=== PATIENT | female | born 1995 | race Caucasian/White ===

== ENCOUNTER 2016-08-11 20:01 | Emergency (ER) | payer SELFPAY ==
[~2016-08-11] VITALS: Ht 167.6 cm; Wt 104.3 kg
[~2016-08-11 20:01] MED LIST: PRED50TA PO; TRAM-29 PO; VALA500T5 PO
[2016-08-11 20:36] VITALS: BP 176/77
--- NOTE | 2016-08-11 20:51 | PHYS DOC ---
Past Medical History Past Medical History: Asthma, Diabetes-Type I Past Surgical History: Cholecystectomy, Tonsillectomy, Other Alcohol Use: None Drug Use: None Adult General Chief Complaint Chief Complaint: COUGH HPI HPI Patient is a 20 year old female presents emergency department stating that she' s had a cough congestion sore throat and sinus pressure since Tuesday. Patient states that she also has been exposed to the influenza virus. Patient states he' s been taken Tylenol and ibuprofen for pain and discomfort. Chest is states that her glucose is a bit elevated into the 300s. She has been adjusting her insulin accordingly. Patient denies any nausea vomiting. Review of Systems Review of Systems Constitutional: fever Eyes: Denies change in visual acuity, redness, or eye pain [] HENT: nasal congestion with a sore throat [] Respiratory: cough and shortness of breath [] Cardiovascular: No additional information not addressed in HPI [] GI: Denies abdominal pain, nausea, vomiting, bloody stools or diarrhea [] : Denies dysuria or hematuria [] Musculoskeletal: Denies back pain or joint pain [] Integument: Denies rash or skin lesions [] Neurologic: Denies headache, focal weakness or sensory changes [] Current Medications Current Medications Current Medications Medications (Trade) Dose Ordered Sig/Claudia Start Time Stop Time Status Last Admin Dose Admin Albuterol/ Ipratropium (Duoneb) 3 ml 1X ONCE 08/11/16 21:00 08/11/16 21:01 DC 08/11/16 21:04 3 ML Allergies Allergies Allergies Coded Allergies Type Severity Reaction Last Updated Verified amoxicillin Allergy Intermediate 07/22/16 Yes clavulanic acid Allergy Intermediate 07/22/16 Yes clindamycin Allergy Intermediate 07/22/16 Yes Physical Exam Physical Exam Constitutional: Well developed, well nourished, no acute distress, non-toxic appearance. [] HENT: Normocephalic, atraumatic, bilateral external ears normal, oropharynx moist, no oral exudates, nose normal. Right tympanic membrane normal, left tympanic membrane appears to be red. Patient with frontal and maxillary sinus tenderness noted. Patient with bilateral naris erythematous and swelling. Eyes: PERRLA, EOMI, conjunctiva normal, no discharge. [] Neck: Normal range of motion, no tenderness, supple, no stridor. [] Cardiovascular:Heart rate regular rhythm, no murmur [] Lungs & Thorax: Bilateral breath sounds with wheezes noted posteriorly. Skin: Warm, dry, no erythema, no rash. [] Back: No tenderness Extremities: No tenderness, no cyanosis, no clubbing, ROM intact, no edema. [] Neurologic: Alert and oriented X 3, normal motor function, normal sensory function, no focal deficits noted. [] Psychologic: Affect normal, judgement normal, mood normal. [] Current Patient Data Vital Signs Vital Signs Date Time Temp Pulse Resp B/P Pulse Ox O2 Delivery O2 Flow Rate FiO2 08/11/16 21:02 95 Room Air 08/11/16 20:36 99.0 132 18 99.0 Lab Values Laboratory Tests Test 08/11/16 20:30 Influenza Type A Antigen Positive (NEGATIVE) Influenza Type B Antigen Negative (NEGATIVE) EKG EKG [] Radiology/Procedures Radiology/Procedures [] Course & Med Decision Making Course & Med Decision Making Pertinent Labs and Imaging studies reviewed. (See chart for details) She was provided with a DuoNeb here in the emergency department. Posterior breath sounds are clear at this time. Patient's influenza A was positive. Rapid strep was negative. Patient will be provided with Zithromax for sinus infection as well as influenza in which she is out of the timeframe to have Tamiflu. Recommended Tylenol and ibuprofen for fever chills or otherwise body aches and discomfort. Recommended plenty of fluids. She'll also be provided with prednisone as she was wheezing throughout. She does have a history of asthma and has albuterol inhaler at home. Recommended her using that as prescribed. Patient will be discharged home in stable condition since symptoms to return back to emergency department as been provided. Patient agrees with discharge instructions treatment regimens and follow-up recommendations [] Dragon Disclaimer Dragon Disclaimer This electronic medical record was generated, in whole or in part, using a voice recognition dictation system. Departure Departure Impression: Primary Impression: Influenza A Additional Impression: Sinusitis Disposition: HOME, SELF-CARE Condition: STABLE Referrals: NO PCP (PCP) Patient Instructions: Influenza, Adult, Sinusitis, [id number] Additional Instructions: Medication as prescribed. Tylenol or ibuprofen for fever chills or generalized body aches and discomfort. Drink plenty of fluids. Use your albuterol inhaler as prescribed at home. Follow-up through primary care physician in one week. Return back to emergency percent symptoms of become worse. Scripts Prednisone 20 Mg Tablet2 Tab PO DAILY #10 TAB Prov:AGNES BRAGG NP 08/11/16 Azithromycin (Zithromax)250 Mg [id number] Mg PO DAILY ANTI-BIOTIC #6 TAB Ref 0 take 2 tablets today and then 1 tablet daily until gone Prov:AGNES BRAGG NP 08/11/16 Problem Qualifiers AGNES BRAGG NP Aug 11, 2016 20:51
[2016-08-11] MEDS ORDERED: IPRATRPIUM/ALBUTEROL 0.5/2.5MG 3 ML NEBU. NEB ONE (21:00)
[2016-08-11 21:06] LABS: OBC FLU VALID
[2016-08-11] MEDS ORDERED: PRED20TA PO (21:16)
[2016-08-11] MEDS ORDERED: AZIT250T PO (21:16)
[2016-08-12 08:51] LABS: NEGATIVE OBC STREP NEG; POSITIVE OBC STREP POS
== END 2016-08-11 21:23 | disposition home or self-care (01) ==
LOC: ER 20:01
DX: J09.X2 Influenza due to identified novel influenza A virus with other respiratory manifestations (principal); J32.9 Chronic sinusitis, unspecified; J45.909 Unspecified asthma, uncomplicated; E10.9 Type 1 diabetes mellitus without complications; Z88.1 Allergy status to other antibiotic agents; Z88.8 Allergy status to other drugs, medicaments and biological substances
CPT/HCPCS: 87070; 87804; 87880; 94250; 94640; 99284; J7620

== ENCOUNTER 2016-09-13 18:04 | Emergency (ER) | payer SELFPAY ==
[~2016-09-13 18:04] MED LIST changes: +AZIT250T PO; +PRED20TA PO
[2016-09-13 20:23] LABS: BILIRUBIN,URINE NEGATIVE (NEG); GLUCOSE,URINE >=1000 mg/dL (NEG); NITRITE,URINE NEGATIVE (NEG); PH,URINE 5.5; PROTEIN,URINE 30 mg/dL (NEG-TRACE); UROBILINOGEN,URINE 0.2 mg/dL (0.2 mg/dL)
[2016-09-13] MEDS ORDERED: IBUPROFEN 400 MG TABLET. PO ONE (20:30)
[2016-09-13 20:37] LABS: BACTERIA,URINE MANY /HPF (0-FEW); RBC,URINE TNTC /HPF (0-2); SQUAMOUS EPITHELIAL CELL,UR FEW /LPF
[2016-09-13 20:58] LABS: NEG OBC UR NEG; POS OBC UR POS
[2016-09-13 21:00] VITALS: BP 145/71
[2016-09-13] MEDS ORDERED: CIPR250T PO (21:02)
--- NOTE | 2016-09-13 21:02 | PHYS DOC ---
Past Medical History Past Medical History: Asthma, Diabetes-Type II, Diverticulitis Additional Past Medical Histor: fatty liver, stomach ulcers Past Surgical History: Cholecystectomy, Tonsillectomy Alcohol Use: Rarely Drug Use: None Adult General Chief Complaint Chief Complaint: ABDOMINAL PAIN HPI HPI Patient is a 20 year old female who presents with dysuria and bilateral low back pain for the past 2 weeks. Her pain comes after urination. Right back hurts worse than left back. Pain is burning and aching. She denies abdominal pain, fever or chills, nausea or vomiting, constipation, diarrhea, vaginal bleeding or discharge. Review of Systems Review of Systems Constitutional: Denies fever or chills [] Eyes: Denies change in visual acuity, redness, or eye pain [] HENT: Denies nasal congestion or sore throat [] Respiratory: Denies cough or shortness of breath [] Cardiovascular: No additional information not addressed in HPI [] GI: Denies abdominal pain, nausea, vomiting, bloody stools or diarrhea [] : Denies hematuria [] Musculoskeletal: Denies joint pain [] Integument: Denies rash or skin lesions [] Neurologic: Denies headache, focal weakness or sensory changes [] Endocrine: Denies polyuria or polydipsia [] Current Medications Current Medications Current Medications Medications (Trade) Dose Ordered Sig/Claudia Start Time Stop Time Status Last Admin Dose Admin Ibuprofen (Motrin) 400 mg 1X ONCE 09/13/16 20:30 09/13/16 20:39 DC 09/13/16 20:48 400 MG Allergies Allergies Allergies Coded Allergies Type Severity Reaction Last Updated Verified amoxicillin Allergy Intermediate 07/22/16 Yes clavulanic acid Allergy Intermediate 07/22/16 Yes clindamycin Allergy Intermediate 07/22/16 Yes Physical Exam Physical Exam Constitutional: Well developed, well nourished, no acute distress, non-toxic appearance. [] HENT: Normocephalic, atraumatic, bilateral external ears normal, oropharynx moist, nose normal. [] Eyes: PERRLA, EOMI. [] Neck: Normal range of motion, supple. [] Cardiovascular:Heart rate regular rhythm [] Lungs & Thorax: Bilateral breath sounds clear to auscultation [] Abdomen: Bowel sounds normal, soft, no tenderness. [] Skin: Warm, dry, no erythema, no rash. [] Back: No tenderness, no CVA tenderness. [] Extremities: ROM intact, no edema. [] Neurologic: Alert and oriented X 3, normal motor function, normal sensory function, no focal deficits noted. [] Psychologic: Affect normal, judgement normal, mood normal. [] Current Patient Data Vital Signs Vital Signs Date Time Temp Pulse Resp B/P Pulse Ox O2 Delivery O2 Flow Rate FiO2 09/13/16 19:01 97.7 104 18 132/81 100 Room Air 97.7 Lab Values Laboratory Tests Test 09/13/16 19:45 Urine Collection Type Unknown Urine Color Yellow Urine Clarity Cloudy Urine pH 5.5 Urine Specific [place] >=1.030 Urine Protein 30mg/dL (NEG-TRACE) Urine Glucose (UA) >=1000mg/dL (NEG) Urine Ketones (Stick) Negativemg/dL (NEG) Urine Blood Large (NEG) Urine Nitrite Negative (NEG) Urine Bilirubin Negative (NEG) Urine Urobilinogen Dipstick 0.2mg/dL (0.2 mg/dL) Urine Leukocyte Esterase Moderate (NEG) Urine RBC Tntc/HPF (0-2) Urine WBC 5-10/HPF (0-4) Urine Squamous Epithelial Cells Few/LPF Urine Bacteria Many/HPF (0-FEW) Urine Test Negative (NEG) Course & Med Decision Making Course & Med Decision Making Pertinent Labs and Imaging studies reviewed. (See chart for details) Will treat for urinary tract infection. Encouraged close primary care doctor follow-up. Return precautions given. She understands and agrees with plan. Dragon Disclaimer Dragon Disclaimer This electronic medical record was generated, in whole or in part, using a voice recognition dictation system. Departure Departure Impression: Primary Impression: Acute cystitis with hematuria Disposition: HOME, SELF-CARE Condition: STABLE Referrals: UNKNOWN PCP NAME (PCP) Patient Instructions: Urinary Tract Infection, [id number] Additional Instructions: Take Cipro for urinary tract infection. Take Tylenol or ibuprofen as needed for pain. Follow-up with your primary care doctor within one week. Return for any concerns. Scripts Ciprofloxacin Hcl 250 Mg Tablet1 Tab PO BID #6 TAB Prov:Claudio AKBAR MD 09/13/16 Claudio AKBAR MD Sep 13, 2016 21:02
== END 2016-09-13 21:20 | disposition home or self-care (01) ==
LOC: ER 18:04
DX: N30.01 Acute cystitis with hematuria (principal); J45.909 Unspecified asthma, uncomplicated; E11.9 Type 2 diabetes mellitus without complications; Z90.49 Acquired absence of other specified parts of digestive tract; Z88.0 Allergy status to penicillin; Z88.1 Allergy status to other antibiotic agents
CPT/HCPCS: 81001; 81025; 87086; 99284

== ENCOUNTER 2017-01-04 21:11 | Emergency (ER) | payer SELFPAY ==
[~2017-01-04] VITALS: Ht 165.1 cm; Wt 99.8 kg
[~2017-01-04 21:11] MED LIST changes: +CIPR250T PO; -TRAM-29 PO; +TRAM-48 PO
[2017-01-04] MEDS ORDERED: IV NORMAL SALINE 1000ML BAG 1,000 ML IV ONE (21:45)
[2017-01-04 21:47] LABS: BILIRUBIN,URINE NEGATIVE (NEG); GLUCOSE,URINE 100 mg/dL (NEG); NITRITE,URINE NEGATIVE (NEG); PH,URINE 5.5; PROTEIN,URINE NEGATIVE (NEG-TRACE); UROBILINOGEN,URINE 0.2 mg/dL (0.2 mg/dL)
[2017-01-04 22:01] LABS: BACTERIA,URINE 0 /HPF (0-FEW); SQUAMOUS EPITHELIAL CELL,UR FEW /LPF
[2017-01-04 22:08] LABS: BASO # 0.1 x10^3/uL (0.0-0.2); BASO % 1 % (0-3); EOS % 1 % (0-3); HEMATOCRIT 34.3 % (36.0-47.0); HEMOGLOBIN 10.5 g/dL (12.0-15.5); LYMPH # 3.4 x10^3/uL (1.0-4.8); LYMPH % 25 % (24-48); MEAN CORPUSCULAR HEMOGLOBIN 22 pg (25-35); MEAN CORPUSCULAR HGB CONC 31 g/dL (31-37); MEAN CORPUSCULAR VOLUME 71 fL (79-100); MONO % 4 % (0-9); NEUT % 70 % (31-73); PLATELET COUNT 379 x10^3/uL (140-400); RED BLOOD COUNT 4.79 x10^6/uL (3.50-5.40); RED CELL DISTRIBUTION WIDTH 15.7 % (11.5-14.5)
[2017-01-04 22:19] LABS: CREATININE 0.8 mg/dL (0.6-1.0); GFR 88.9; POTASSIUM 3.6 mmol/L (3.5-5.1)
--- NOTE | 2017-01-04 22:21 | PHYS DOC ---
Past Medical History Past Medical History: Asthma, Diabetes-Type II, Diverticulitis Additional Past Medical Histor: fatty liver, stomach ulcers Past Surgical History: Cholecystectomy, Tonsillectomy Alcohol Use: Rarely Drug Use: None Adult General Chief Complaint Chief Complaint: BLOOD IN URINE HPI HPI Patient is a 21 year old F who presents with right flank pain and increased urinary frequency for the past 2 days. Should states she's had subjective fevers at home. Patient states she has positive nausea with no vomiting/or diarrhea. Patient states she is a history of UTIs and has recently moved into the area and has no PCP. Patient states that over the past couple months she's been having right flank pain and has been diagnosed with multiple UTIs and was admitted to [facility] in October 2016 for these reasons. Patient has not followed up as an outpatient. Patient denies any chest pain or shortness of breath. Patient has no other complaints. Pertinent exam findings: Abdomen was soft positive tenderness palpation over the right flank with positive CVA tenderness ED course: Patient was seen and examined a CBC, CMP, lipase, UA were ordered along with 1 L normal saline bolus 2233: Reviewing the lab work patient has elevated white count however her urine shows no signs of infection will pursue a CT scan abdomen and pelvis 0032: Discuss CT results the patient and recommended she follow up with her PCP for further evaluation of the large lymph nodes. Give the patient the option of being treated clinically for UTI even know her urine did not show signs or symptoms of a bladder infection and the patient opted not to be treated and will follow-up with her PCP. Pertinent results: UA was negative WBC 14 CT scan abdomen and pelvis IMPRESSION: Prominent lymph nodes in the mesentery in the right lower quadrant and in the inguinal regions bilaterally. No other focal abnormalities seen in the abdomen or pelvis. MDM: After reviewing the chart, CC/HPI/PMH, physical exam, [lab results], [ radiological results], I do not believe the patient has intra-abdominal emergency warranting further workup and/or admission at this time. I made patient aware of the enlarged lymph nodes on the CT scan and recommend she follow up with PCP for further evaluation of this lymph nodes to rule out cancer. Patient is comfortable going home. Discussed the possibility of treating for a clinical UTI however the patient stated that if her urine did not show signs or symptoms of UTI she did not want to be placed on ABX at this time. Recommended short-term follow-up with PCP in one to 2 days. Additional verbal discharge instructions were provided to the patient and that if symptoms get worse or any new symptoms arise that are worrisome to the patient she is to return to the emergency room immediately Review of Systems Review of Systems GEN: Denies fevers, chills, sweats HEENT: Denies blurred vision, sore throat CV: Denies chest pain RESP: Denies shortness of air, cough GI: Right flank pain with nausea NEURO: Denies confusion, dizziness MSK: Denies weakness, joint pain/swelling Current Medications Current Medications Current Medications Medications (Trade) Dose Ordered Sig/Claudia Start Time Stop Time Status Last Admin Dose Admin Info (Do NOT chart on this entry -- for MONITORING) 1 each PRN DAILY PRN 01/04/17 23:30 01/06/17 23:29 Iohexol (Omnipaque 300 Mg/ml) 75 ml 1X ONCE 01/04/17 23:30 01/04/17 23:31 DC 01/04/17 23:29 75 ML Sodium Chloride 1,000 ml @ 1,000 mls/hr 1X ONCE 01/04/17 21:45 01/04/17 22:44 DC 01/04/17 21:58 1,000 MLS/HR Allergies Allergies Allergies Coded Allergies Type Severity Reaction Last Updated Verified amoxicillin Allergy Intermediate 07/22/16 Yes clavulanic acid Allergy Intermediate 07/22/16 Yes clindamycin Allergy Intermediate 07/22/16 Yes Physical Exam Physical Exam GEN.: No apparent distress. Alert and oriented. HEENT: Head is normocephalic, atraumatic NECK: Supple. LUNGS: CTAB. HEART: RRR, S1, S2 present. Peripheral pulses intact ABDOMEN: Soft, positive tenderness palpation of the right flank and positive right CVA tenderness. Positive bowel sounds. EXTREMITIES: Without any cyanosis. NEUROLOGIC: Normal speech, normal tone PSYCHIATRIC: Normal affect, normal mood. SKIN: No ulcerations Current Patient Data Vital Signs Vital Signs Date Time Temp Pulse Resp B/P (MAP) Pulse Ox O2 Delivery O2 Flow Rate FiO2 01/04/17 21:36 98.4 102 20 141/76 (97) 99 Room Air 98.4 Lab Values Laboratory Tests Test 01/04/17 20:41 01/04/17 21:40 01/04/17 21:53 POC Urine HCG, Qualitative Hcg negative (Negative) Urine Collection Type Unknown Urine Color Yellow Urine Clarity Clear Urine pH 5.5 Urine Specific [place] 1.025 Urine Protein Negative mg/dL (NEG-TRACE) Urine Glucose (UA) 100 mg/dL (NEG) Urine Ketones (Stick) Negative mg/dL (NEG) Urine Blood Moderate (NEG) Urine Nitrite Negative (NEG) Urine Bilirubin Negative (NEG) Urine Urobilinogen Dipstick 0.2 mg/dL (0.2 mg/dL) Urine Leukocyte Esterase Negative (NEG) Urine RBC 11-20 /HPF (0-2) Urine WBC 1-4 /HPF (0-4) Urine Squamous Epithelial Cells Few /LPF Urine Bacteria 0 /HPF (0-FEW) Urine Mucus Mod /LPF White Blood Count 14.0 x10^3/uL (4.0-11.0) H Red Blood Count 4.79 x10^6/uL (3.50-5.40) Hemoglobin 10.5 g/dL (12.0-15.5) L Hematocrit 34.3 % (36.0-47.0) L Mean Corpuscular Volume 71 fL (79-100) L Mean Corpuscular Hemoglobin 22 pg (25-35) L Mean Corpuscular Hemoglobin Concent 31 g/dL (31-37) Red Cell Distribution Width 15.7 % (11.5-14.5) H Platelet Count 379 x10^3/uL (140-400) Neutrophils (%) (Auto) 70 % (31-73) Lymphocytes (%) (Auto) 25 % (24-48) Monocytes (%) (Auto) 4 % (0-9) Eosinophils (%) (Auto) 1 % (0-3) Basophils (%) (Auto) 1 % (0-3) Neutrophils # (Auto) 9.8 x10^3uL (1.8-7.7) H Lymphocytes # (Auto) 3.4 x10^3/uL (1.0-4.8) Monocytes # (Auto) 0.6 x10^3/uL (0.0-1.1) Eosinophils # (Auto) 0.1 x10^3/uL (0.0-0.7) Basophils # (Auto) 0.1 x10^3/uL (0.0-0.2) Platelet Estimate Adequate (ADEQUATE) Hypochromasia Mod Poikilocytosis Slight Anisocytosis Slight Microcytosis Mod Ovalocytes Occ Sodium Level 138 mmol/L (136-145) Potassium Level 3.6 mmol/L (3.5-5.1) Chloride Level 104 mmol/L (98-107) Carbon Dioxide Level 29 mmol/L (21-32) Anion Gap 5 (6-14) L Blood Urea Nitrogen 9 mg/dL (7-20) Creatinine 0.8 mg/dL (0.6-1.0) Estimated GFR (Cockcroft-Gault) 88.9 BUN/Creatinine Ratio 11 (6-20) Glucose Level 177 mg/dL (70-99) H Calcium Level 9.0 mg/dL (8.5-10.1) Total Bilirubin 0.2 mg/dL (0.2-1.0) Aspartate Amino Transferase (AST) 10 U/L (15-37) L Alanine Aminotransferase (ALT) 20 U/L (14-59) Alkaline Phosphatase 45 U/L (46-116) L Total Protein 8.1 g/dL (6.4-8.2) Albumin 3.5 g/dL (3.4-5.0) Albumin/Globulin Ratio 0.8 (1.0-1.7) L Lipase 142 U/L (73-393) Laboratory Tests 01/04/17 21:53 Laboratory Tests 01/04/17 21:53 EKG EKG [] Radiology/Procedures Radiology/Procedures CT scan abdomen and pelvis with contrast: IMPRESSION: Prominent lymph nodes in the mesentery in the right lower quadrant and in the inguinal regions bilaterally. No other focal abnormalities seen in the abdomen or pelvis.[] Course & Med Decision Making Course & Med Decision Making Pertinent Labs and Imaging studies reviewed. (See chart for details) [] Dragon Disclaimer Dragon Disclaimer This electronic medical record was generated, in whole or in part, using a voice recognition dictation system. Departure Departure Impression: Primary Impression: Right flank pain Disposition: HOME, SELF-CARE Condition: IMPROVED Referrals: NO PCP (PCP) Additional Instructions: Please follow up with her family doctor to have your enlarged lymph nodes in her abdomen further evaluated within the next week. JAYE MILLARD DO Jan 04, 2017 22:21
[2017-01-04 22:25] LABS: ALBUMIN 3.5 g/dL (3.4-5.0); ALBUMIN/GLOBULIN RATIO 0.8 (1.0-1.7); TOTAL BILIRUBIN 0.2 mg/dL (0.2-1.0); TOTAL PROTEIN 8.1 g/dL (6.4-8.2)
[2017-01-04 22:39] LABS: HYPOCHROMIA MOD; PLT ESTIMATE ADEQUATE (ADEQUATE); POIKILOCYTOSIS SLIGHT
[2017-01-04 22:40] LABS: ANISOCYTOSIS SLIGHT; MICROCYTOSIS MOD; OVALOCYTES OCC
[2017-01-04] MEDS ORDERED: CONTRAST GIVEN MC PRN (23:30)
[2017-01-04] MEDS ORDERED: IOHEXOL 300 MG/ML 75 ML VIAL IV ONE (23:30)
--- NOTE | 2017-01-05 00:10 | RAD ---
CT abdomen and pelvis with contrast: Reason for examination: Right flank pain and hematuria. Evaluate for pyelonephritis per doctor. Helical images were obtained through the abdomen and pelvis with intravenous administration of 75 cc Omnipaque 300. Reconstruction was performed in sagittal and coronal planes. Exposure: One or more of the following individualized dose reduction techniques were utilized for this examination: 1. Automated exposure control 2. Adjustment of the mA and/or kV according to patient size 3. Use of iterative reconstruction technique. The lung bases are clear. The heart size is normal with no pericardial effusion evident. No abnormality seen in the liver, spleen, adrenal glands or pancreas. The gallbladder surgically absent. The kidneys are homogeneous without evidence of mass or pyelonephritis. No renal calculi or hydronephrosis is seen. There is no evidence of obstructive uropathy. The intestinal tract shows no abnormally dilated loops of bowel or thickened bowel [place]. There is no evidence of bowel obstruction. No abnormality is seen at the bladder uterus or ovaries. No free fluid is seen. There are prominent inguinal lymph nodes and in the mesentery in the right lower quadrant. No acute bony abnormalities are seen. IMPRESSION: Prominent lymph nodes in the mesentery in the right lower quadrant and in the inguinal regions bilaterally. No other focal abnormalities seen in the abdomen or pelvis. Electronically signed by: Jeanne Gregory MD (01/05/2017 12:06 AM)
[2017-01-05 00:32] VITALS: BP 124/79
== END 2017-01-05 00:43 | disposition home or self-care (01) ==
LOC: ER 21:11
DX: R10.9 Unspecified abdominal pain (principal); R35.0 Frequency of micturition; R50.9 Fever, unspecified; E11.9 Type 2 diabetes mellitus without complications; J45.909 Unspecified asthma, uncomplicated; Z87.19 Personal history of other diseases of the digestive system; Z90.49 Acquired absence of other specified parts of digestive tract; Z88.1 Allergy status to other antibiotic agents
CPT/HCPCS: 36415; 74177; 80053; 81001; 81025; 83690; 85007; 85027; 96360; 99285; J7030; Q9967

== ENCOUNTER 2017-04-02 00:29 | Emergency (ER) | payer SELFPAY ==
[~2017-04-02] VITALS: Ht 167.6 cm; Wt 106.6 kg
--- NOTE | 2017-04-02 00:52 | PHYS DOC ---
Past Medical History Past Medical History: Asthma, Diabetes-Type II, Diverticulitis Additional Past Medical Histor: fatty liver, stomach ulcers Past Surgical History: Cholecystectomy, Tonsillectomy Alcohol Use: Rarely Drug Use: None Adult General Chief Complaint Chief Complaint: HYPERGLYCEMIA HPI HPI Patient is a 21 year old female who presents with hyperglycemia. She states Tuesday she started having a runny nose and noticing her sugars read as "high". She states that she has green nasal discharge and sometimes coughs up green stuff. She states she has a history of asthma and feels like she's been wheezing today. She states that she felt like she had a fever today and has a lot of pressure around her frontal sinuses. She states intermittently over the last several days she's felt like she is going pass out and her vision gets a little blurry occasionally. Currently she denies feeling the symptoms. She states she's been seeing a lot and drinking a lot to try to stay hydrated. She states she takes 70/30 insulin once daily in the morning and is on metformin thousand milligrams twice a day. She does have a nurse practitioners she sees an hour and a half away can see them in 2 weeks. Review of Systems Review of Systems Constitutional: Denies fever or chills [] Eyes: Denies change in visual acuity, redness, or eye pain [] HENT: Denies nasal congestion or sore throat [] Respiratory: Denies shortness of breath, positive for cough Cardiovascular: No additional information not addressed in HPI [] GI: Denies abdominal pain, nausea, vomiting, bloody stools or diarrhea [] : Denies dysuria or hematuria [] Musculoskeletal: Denies back pain or joint pain [] Integument: Denies rash or skin lesions [] Neurologic: Denies headache, focal weakness or sensory changes [] Endocrine: Denies polyuria or polydipsia [] Current Medications Current Medications Current Medications Medications (Trade) Dose Ordered Sig/Claudia Start Time Stop Time Status Last Admin Dose Admin Albuterol/ Ipratropium (Duoneb) 3 ml 1X ONCE 04/02/17 02:00 04/02/17 02:01 DC 04/02/17 01:40 3 ML Doxycycline Hyclate (Vibra-Tab) 100 mg 1X ONCE 04/02/17 04:00 04/02/17 04:01 Sodium Chloride 1,000 ml @ 1,000 mls/hr 1X ONCE 04/02/17 02:30 04/02/17 03:29 DC 04/02/17 02:30 1,000 MLS/HR Allergies Allergies Allergies Coded Allergies Type Severity Reaction Last Updated Verified amoxicillin Allergy Intermediate 07/22/16 Yes clavulanic acid Allergy Intermediate 07/22/16 Yes clindamycin Allergy Intermediate 07/22/16 Yes Physical Exam Physical Exam Constitutional: Well developed, well nourished, no acute distress, non-toxic appearance. [] HENT: Normocephalic, atraumatic, bilateral external ears normal, oropharynx moist, no oral exudates, nose normal. Tender to palpation over the maxillary sinuses Eyes: PERRLA, EOMI, conjunctiva normal, no discharge. [] Neck: Normal range of motion, no tenderness, supple, no stridor. [] Cardiovascular:Heart rate regular rhythm, no murmur [] Lungs & Thorax: Bilateral breath sounds clear to auscultation [] Abdomen: Bowel sounds normal, soft, no tenderness, no masses, no pulsatile masses. [] Skin: Warm, dry, no erythema, no rash. [] Back: No tenderness, no CVA tenderness. [] Extremities: No tenderness, no cyanosis, no clubbing, ROM intact, no edema. [] Neurologic: Alert and oriented X 3, normal motor function, normal sensory function, no focal deficits noted. [] Psychologic: Affect normal, judgement normal, mood normal. [] Current Patient Data Vital Signs Vital Signs Date Time Temp Pulse Resp B/P (MAP) Pulse Ox O2 Delivery O2 Flow Rate FiO2 04/02/17 01:41 96 Room Air 04/02/17 00:40 98.2 123 20 170/97 (121) 98.2 Lab Values Laboratory Tests Test 04/02/17 00:43 04/02/17 00:47 04/02/17 00:48 04/02/17 01:05 Glucose (Fingerstick) 414 mg/dL (70-99) H White Blood Count 14.2 x10^3/uL (4.0-11.0) H Red Blood Count 5.19 x10^6/uL (3.50-5.40) Hemoglobin 11.7 g/dL (12.0-15.5) L Hematocrit 37.1 % (36.0-47.0) Mean Corpuscular Volume 71 fL (79-100) L Mean Corpuscular Hemoglobin 23 pg (25-35) L Mean Corpuscular Hemoglobin Concent 32 g/dL (31-37) Red Cell Distribution Width 15.3 % (11.5-14.5) H Platelet Count 339 x10^3/uL (140-400) Neutrophils (%) (Auto) 65 % (31-73) Lymphocytes (%) (Auto) 29 % (24-48) Monocytes (%) (Auto) 4 % (0-9) Eosinophils (%) (Auto) 2 % (0-3) Basophils (%) (Auto) 1 % (0-3) Neutrophils # (Auto) 9.2 x10^3uL (1.8-7.7) H Lymphocytes # (Auto) 4.0 x10^3/uL (1.0-4.8) Monocytes # (Auto) 0.6 x10^3/uL (0.0-1.1) Eosinophils # (Auto) 0.2 x10^3/uL (0.0-0.7) Basophils # (Auto) 0.1 x10^3/uL (0.0-0.2) Platelet Estimate Adequate (ADEQUATE) Large Platelets Few Hypochromasia Slight Poikilocytosis Slight Microcytosis Mod Ovalocytes Occ Prothrombin Time 12.6 SEC (11.7-14.0) Prothrombin Time INR 1.0 (0.8-1.1) Sodium Level 132 mmol/L (136-145) L Potassium Level 3.6 mmol/L (3.5-5.1) Chloride Level 96 mmol/L (98-107) L Carbon Dioxide Level 28 mmol/L (21-32) Anion Gap 8 (6-14) Blood Urea Nitrogen 8 mg/dL (7-20) Creatinine 0.7 mg/dL (0.6-1.0) Estimated GFR (Cockcroft-Gault) 103.7 Glucose Level 442 mg/dL (70-99) H Calcium Level 9.0 mg/dL (8.5-10.1) Magnesium Level 1.8 mg/dL (1.8-2.4) Total Bilirubin 0.2 mg/dL (0.2-1.0) Direct Bilirubin 0.1 mg/dL (0.0-0.2) Aspartate Amino Transferase (AST) 16 U/L (15-37) Alanine Aminotransferase (ALT) 28 U/L (14-59) Alkaline Phosphatase 74 U/L (46-116) Creatine Kinase 59 U/L (26-192) Creatine Kinase MB (Mass) < 0.5 ng/mL (0.0-3.6) Creatine Kinase MB Relative Index 0.8 % (0-4) Total Protein 8.3 g/dL (6.4-8.2) H Albumin 3.1 g/dL (3.4-5.0) L Lipase 188 U/L (73-393) Thyroid Stimulating Hormone (TSH) 3.325 uIU/mL (0.358-3.74) POC Urine HCG, Qualitative Hcg negative (Negative) Lactic Acid Level 1.1 mmol/L (0.4-2.0) Test 04/02/17 01:32 04/02/17 03:32 Urine Collection Type Unknown Urine Color Yellow Urine Clarity Clear Urine pH 6.5 Urine Specific [place] >=1.030 Urine Protein Negative mg/dL (NEG-TRACE) Urine Glucose (UA) >=1000 mg/dL (NEG) Urine Ketones (Stick) 15 mg/dL (NEG) Urine Blood Small (NEG) Urine Nitrite Negative (NEG) Urine Bilirubin Negative (NEG) Urine Urobilinogen Dipstick 0.2 mg/dL (0.2 mg/dL) Urine Leukocyte Esterase Negative (NEG) Urine RBC 11-20 /HPF (0-2) Urine WBC 1-4 /HPF (0-4) Urine Squamous Epithelial Cells Occ /LPF Urine Bacteria 0 /HPF (0-FEW) Urine Test Negative (NEG) Urine Opiates Screen Neg (NEG) Urine Methadone Screen Neg (NEG) Urine Barbiturates Neg (NEG) Urine Phencyclidine Screen Neg (NEG) Urine Amphetamine/Methamphetamine Neg (NEG) Urine Benzodiazepines Screen Neg (NEG) Urine Cocaine Screen Neg (NEG) Urine Cannabinoids Screen Neg (NEG) Urine Ethyl Alcohol Neg (NEG) Glucose (Fingerstick) 305 mg/dL (70-99) H Laboratory Tests 04/02/17 00:47 Laboratory Tests 04/02/17 00:47 EKG EKG EKG shows sinus tachycardia with rate of [address] elevations, T- wave inversions noted in leads 3, normal axis, QTC 444 ms, as interpreted by me Radiology/Procedures Radiology/Procedures One view chest x-ray did not show any focal consolidations, bony abnormality's, or pneumothorax, as interpreted by me. Impressions: Hyperglycemia Sinusitis Course & Med Decision Making Course & Med Decision Making Pertinent Labs and Imaging studies reviewed. (See chart for details) Her vitals have improved her it was in the 1 teens and now is close to 100. She did receive a breathing treatment and is feeling better. She has mild ketones but no acidosis or gap. She received 2 L normal saline and likely has sinusitis. She is given 100 mg doxycycline and her sugar recheck was 300. She's being discharged home with 10 days of doxycycline and follow-up with primary care physician within the next few days. She is agreeable plan and being discharged in stable condition this time. Dragon Disclaimer Dragon Disclaimer This electronic medical record was generated, in whole or in part, using a voice recognition dictation system. Departure Departure Impression: Primary Impression: Hyperglycemia Additional Impression: Sinusitis Disposition: HOME, SELF-CARE Condition: STABLE Referrals: NO PCP (PCP) Patient Instructions: Sinusitis Additional Instructions: You likely have a sinus infection and you need take antibiotics for the next 10 days. You received IV fluids and your sugar level improved down to 300. You will need to take your insulin as directed. You will need to follow-up with your primary care physician within the next few days. Please call them and let them know your sugars have been running this high and get an earlier appointment scheduled. If your cough gets worse, you have high fevers, troubles breathing, we are sugars start running high again please return back to emergency department. Scripts Doxycycline Hyclate (DOXYCYCLINE HYCLATE) 100 Mg Tablet 1 TAB PO BID, #20 TAB Prov: DIGNA GONZALEZ MD 04/02/17 Problem Qualifiers Additional Impression: Sinusitis Sinusitis location: maxillary Chronicity: acute Recurrence: non-recurrent Qualified Codes: J01.00 - Acute maxillary sinusitis, unspecified DIGNA GONZALEZ MD Apr 02, 2017 00:52
[2017-04-02 01:02] LABS: BASO # 0.1 x10^3/uL (0.0-0.2); BASO % 1 % (0-3); EOS % 2 % (0-3); HEMATOCRIT 37.1 % (36.0-47.0); HEMOGLOBIN 11.7 g/dL (12.0-15.5); LYMPH % 29 % (24-48); MEAN CORPUSCULAR HEMOGLOBIN 23 pg (25-35); MEAN CORPUSCULAR HGB CONC 32 g/dL (31-37); MEAN CORPUSCULAR VOLUME 71 fL (79-100); MONO % 4 % (0-9); NEUT % 65 % (31-73); PLATELET COUNT 339 x10^3/uL (140-400); RED BLOOD COUNT 5.19 x10^6/uL (3.50-5.40); RED CELL DISTRIBUTION WIDTH 15.3 % (11.5-14.5); WHITE BLOOD COUNT 14.2 x10^3/uL (4.0-11.0)
[2017-04-02 01:11] LABS: PROTHROMBIN TIME PATIENT 12.6 SEC (11.7-14.0)
[2017-04-02] MEDS ORDERED: IV NORMAL SALINE 1000ML BAG 1,000 ML IV ONE ×2 (01:15→02:30)
[2017-04-02 01:33] LABS: CREATINE KINASE 59 U/L (26-192)
[2017-04-02 01:41] LABS: CKMB MASS < 0.5 ng/mL (0.0-3.6)
[2017-04-02 01:44] LABS: ALBUMIN 3.1 g/dL (3.4-5.0); CREATININE 0.7 mg/dL (0.6-1.0); DIRECT BILIRUBIN 0.1 mg/dL (0.0-0.2); GFR 103.7; MAGNESIUM 1.8 mg/dL (1.8-2.4); POTASSIUM 3.6 mmol/L (3.5-5.1); TOTAL BILIRUBIN 0.2 mg/dL (0.2-1.0); TOTAL PROTEIN 8.3 g/dL (6.4-8.2)
[2017-04-02 01:50] LABS: BILIRUBIN,URINE NEGATIVE (NEG); GLUCOSE,URINE >=1000 mg/dL (NEG); NITRITE,URINE NEGATIVE (NEG); PH,URINE 6.5; PROTEIN,URINE NEGATIVE (NEG-TRACE); UROBILINOGEN,URINE 0.2 mg/dL (0.2 mg/dL)
[2017-04-02 01:53] LABS: NEG OBC UR NEG; POS OBC UR POS
[2017-04-02 01:59] LABS: BARBITURATES NEG (NEG); BENZODIAZEPINES NEG (NEG); CANNABINOIDS NEG (NEG); COCAINE NEG (NEG); METHADONE NEG (NEG); OPIATES NEG (NEG); PHENCYCLIDINE NEG (NEG)
[2017-04-02] MEDS ORDERED: IPRATRPIUM/ALBUTEROL 0.5/2.5MG 3 ML NEBU. NEB ONE (02:00)
[2017-04-02 02:12] LABS: BACTERIA,URINE 0 /HPF (0-FEW); SQUAMOUS EPITHELIAL CELL,UR OCC /LPF
[2017-04-02 02:30] VITALS: BP 142/82
[2017-04-02 02:42] LABS: HYPOCHROMIA SLIGHT; MICROCYTOSIS MOD; PLT ESTIMATE ADEQUATE (ADEQUATE); POIKILOCYTOSIS SLIGHT
[2017-04-02 02:43] LABS: OVALOCYTES OCC
[2017-04-02] MEDS ORDERED: DOXY100T PO (03:38)
[2017-04-02] MEDS ORDERED: DOXYCYCLINE HYCLATE 100 MG TABLET PO ONE (04:00)
--- NOTE | 2017-04-02 08:06 | RAD ---
EXAM: CHEST 1 VIEW History: Hyperglycemia, cough COMPARISON: None available. TECHNIQUE: Single portable radiograph of the chest FINDINGS: The cardiac silhouette is unremarkable. The lungs are clear bilaterally. The costophrenic sulci are clear and well demarcated. IMPRESSION: No radiographic evidence of an acute cardiopulmonary process.
--- NOTE | 2017-04-02 09:03 | EKG ---
[facility] [address] [place] [address] Test Date: 2017-04-02 Test Time: 01:08:37 Pat Name: CARMEN AUGUSTE Department: Room: Gender: F Manager Architecture: : 1995 Requested By: DIGNA GONZALEZ Order Number: [id number] Reading MD: Karthik Gallardo Measurements Intervals [place] Rate: 112 P: 46 TN: 142 QRS: 37 QRSD: 90 T: 12 QT: 324 QTc: 444 Interpretive Statements SINUS TACHYCARDIA Electronically Signed On 04-05-2017 9:58:17 CDT by Karthik Gallardo
== END 2017-04-02 03:54 | disposition home or self-care (01) ==
LOC: ER 01:11
DX: E11.65 Type 2 diabetes mellitus with hyperglycemia (principal); J01.00 Acute maxillary sinusitis, unspecified; J45.909 Unspecified asthma, uncomplicated; Z90.49 Acquired absence of other specified parts of digestive tract; Z88.1 Allergy status to other antibiotic agents; Z88.8 Allergy status to other drugs, medicaments and biological substances
CPT/HCPCS: 36415; 71010; 80048; 80076; 80307; 81001; 81025; 82553; 82962; 83605; 83690; 83735; 84443; 84703; 85025; 85610; 93005; 94250; 94640; 96360; 96361; 99285; J7030; J7620; G0479